=== PATIENT | female | born 2000 | race African-American/Black ===

== ENCOUNTER 2020-10-25 12:39 | Outpatient (CLI) | payer OTHER ==
[2020-10-25] MEDS ORDERED: HYDROXYZINE PAMOATE 50 MG CAPSULE PO ONE (13:22)
[2020-10-25] MEDS ORDERED: HYDROXYZINE PAMOATE 50 MG CAPSULE ONE (13:27)
[2020-10-25 13:36] LABS: APPEARANCE,URINE CLEAR; BILIRUBIN,URINE NEGATIVE (NEGATIVE); COLOR,URINE YELLOW; GLUCOSE, URINE NEGATIVE (NEGATIVE); KETONES,URINE NEGATIVE (NEGATIVE); LEUKOCYTE ESTERASE,URINE SMALL (NEGATIVE); NITRITE,URINE NEGATIVE (NEGATIVE); PROTEIN,URINE NEGATIVE (NEGATIVE); URINE SPECIFIC GRAVITY 1.016; UROBILINOGEN,URINE NEGATIVE mg/dL (<2.0)
[2020-10-25 13:54] LABS: URINE AMPHETAMINES SCREEN NEGATIVE; URINE BARBITURATES SCREEN NEGATIVE; URINE BENZODIAZEPINES SCREEN NEGATIVE; URINE COCAINE SCREEN NEGATIVE; URINE MARIJUANA (THC) SCREEN NEGATIVE; URINE METHADONE SCREEN NEGATIVE; URINE PHENCYCLIDINE SCREEN NEGATIVE
--- NOTE | 2020-10-25 14:10 | PDOC PROGRESS REPORT ---
Subjective Date:: 10/25/20 - 32 wks presents from home. Previous baby 11 months ago Subjective:: vaginal pressure, N&V x 1 episode Reason For Visit: LABOR CHECK Physical Exam - Obstetrical Exam Dilation (cm): 0 - closed Effacement (%): 0 - thick Station: -4 Result Laboratory Results: Labs- All tests 24 hr 10/25/20 10/25/20 12:53 12:53 Urine Color YELLOW Urine Appearance CLEAR Urine pH 7.0 Ur Specific [place] 1.016 Urine Protein NEGATIVE Urine Glucose (UA) NEGATIVE Urine Ketones NEGATIVE Urine Blood NEGATIVE Urine Nitrite NEGATIVE Urine Bilirubin NEGATIVE Urine Urobilinogen NEGATIVE Ur Leukocyte Esterase SMALL H Urine WBC (Auto) 1 Urine RBC (Auto) 0 Squamous Epi Cells Auto 8 Urine Mucus (Auto) RARE Urine Ascorbic Acid NEGATIVE Urine Opiates Screen NEGATIVE Urine Methadone Screen NEGATIVE Ur Barbiturates Screen NEGATIVE Ur Phencyclidine Scrn NEGATIVE Ur Amphetamines Screen NEGATIVE U Benzodiazepines Scrn NEGATIVE Urine Cocaine Screen NEGATIVE U Marijuana (THC) Screen NEGATIVE Assessment & Plan - Diagnosis (1) 32 weeks gestation of Is this a current diagnosis for this admission?: Yes (2) NST (non-stress test) reactive Is this a current diagnosis for this admission?: Yes (3) Pelvic pressure in , antepartum Is this a current diagnosis for this admission?: Yes - Time Time Spent with patient: Less than 15 minutes Medications reviewed and adjusted accordingly: Yes Anticipated discharge: Home Anticipated DC Timeframe: Other - today - Plan Summary Plan Summary: D/c home in stable condition, Tylenol PM okay at night. Rx for support belt. Increase PO fluids and BRAT diet as tolerated. F/up with [facility] as scheduled
--- NOTE | 2020-10-25 14:21 | Non Stress Test Report ---
Non Stress Test Datetime Report Generated by CPN: 10/25/2020 14:21 DEMOGRAPHIC EGA NST: 32.2 INDICATION Indication for Study (NST) Other: Labor check VITAL SIGNS Temperature - NST: 98.6 Pulse - NST: 92 RESP - NST: 14 NBPSYS NST: 97 NBPDIA NST: 55 MONITORING Monitor Explained: Monitor Explained; Test Explained; Patient Verbalized Understanding Time on Monitor: 10/25/2020 12:59 (Annotations: Data stored by [facility] on behalf of user) Time off Monitor: 10/25/2020 13:42 NST Duration: 43 NST INTERVENTIONS NST Interventions: PO Hydration; Reposition Patient Physician Notified NST: Camilo bedoya CNM BABY A: [id number] BABY A Movement : Present Contraction Frequency : Irritabilty FHR Baseline : 135 Accelerations : 15X15 Decelerations : None Variability : Moderate 6-25bpm NST Review: Meets Criteria for Reactive NST NST Review and Verified By : Vin Flores RN NST Results: Reactive NST REPORT Report Trigger: Send Report
== END 2020-10-25 14:14 | disposition home or self-care (01) ==
LOC: LC 12:39
PROVIDERS: ATTEND Obstetrics & Gynecology
DX: O47.03 False labor before 37 completed weeks of gestation, third trimester (principal); Z3A.32 32 weeks gestation of pregnancy
CPT/HCPCS: 59025; 80307; 81001; 94760